=== PATIENT | female | born 1975 | race Caucasian/White ===

== ENCOUNTER → 2023-09-10 06:34 | Day surgery (SDC) | payer BC, SELFPAY | LOC: SDS 06:34 | PROVIDERS: ATTENDING PHYSICIAN Specialist | DX: N20.0 Calculus of kidney (principal); Z53.8 Procedure and treatment not carried out for other reasons | CPT/HCPCS: 52356 ==

== ENCOUNTER → 2024-07-02 17:29 | Outpatient (REF) | payer BC, SELFPAY | LOC: WDC 17:29 | PROVIDERS: ATTENDING PHYSICIAN Nurse Practitioner Family | DX: Z12.31 Encounter for screening mammogram for malignant neoplasm of breast (principal) | CPT/HCPCS: 77063; 77067 ==